=== PATIENT | male | born 1975 | race Hispanic/Latino ===

== ENCOUNTER 2024-05-14 18:23 | Emergency (ER) | payer OTHER, SELFPAY ==
[~2024-05-14] VITALS: Ht 175.3 cm; Wt 77.1 kg
[~2024-05-14 18:23] MED LIST: DOXY100T21 PO; TYL3 PO
[2024-05-14] MEDS: ondanSETRON 4MG INJ IVP ONE (19:22)
[2024-05-14] MEDS: ketOROlac 15MG/ML VIAL (15MG/ML) IV ONE (19:22)
[2024-05-14] MEDS: morPHINE 2 MG SYG IVP ONE (19:22)
[2024-05-14 19:35] LABS: BASOPHILS # (AUTO) 0.07 K/uL (0.00-0.20); BASOPHILS % (AUTO) 0.4 % (0.0-5.0); EOSINOPHILS # (AUTO) 0.13 K/uL (0.00-0.70); EOSINOPHILS % (AUTO) 0.7 % (0.0-8.0); HEMATOCRIT 44.4 % (42-54); IMMATURE GRANULOCYTE ABSOLUTE 0.08 K/uL (0-1); LYMPHOCYTES # (AUTO) 2.5 K/uL (1.0-4.8); MEAN CORPUSCULAR HEMOGLOBIN 31.6 pg (27.0-33.0); MEAN CORPUSCULAR HGB CONC 34.7 g/dL (32.0-36.0); MEAN CORPUSCULAR VOLUME 91.2 fL (79-99); MONOCYTES # (AUTO) 1.4 K/uL (0.1-1.0); NEUTROPHILS # (AUTO) 13.4 K/uL (1.8-7.7); NEUTROPHILS % (AUTO) 76.4 % (40.0-77.0); PLATELET COUNT (AUTO) 310 K/uL (130-400); RED BLOOD CELL COUNT(AUTO) 4.87 MIL/uL (4.50-6.20); RED CELL DISTRIBUTION WIDTH 12.1 % (11.0-15.5); WHITE BLOOD COUNT (AUTO) 17.5 K/uL (4.8-10.8)
[2024-05-14 19:43] LABS: POTASSIUM 3.5 mmol/L (3.5-5.1)
[2024-05-14 20:47] VITALS: BP 142/87; PULSE 95; RESP 16; TEMP 99.6; O2SAT 96
[2024-05-15] MEDS ORDERED: KETO10TA2 PO (04:46)
== END 2024-05-14 20:51 | disposition home or self-care (01) ==
LOC: EDH 18:23
DX: M25.561 Pain in right knee (principal)
CPT/HCPCS: 99284; 96374; 96375; 80048; 85025; 36415; 73562; J2270; J2405; J1885